=== PATIENT | female | born 1990 | race Caucasian/White ===

== ENCOUNTER 2016-10-15 09:24 | Emergency (ER) | payer OTHER ==
[2016-10-15 09:58] VITALS: BP 117/70
[2016-10-15] MEDS ORDERED: Al Hydrox/Mg Hydrox/Simet LIQ* 30 ML UDC PO ONE (11:01)
[2016-10-15] MEDS ORDERED: Lidocaine 2% VISCOUS* 15 ML UDC PO ONE (11:01)
--- NOTE | 2016-10-15 12:22 | RAD ---
HISTORY: Right upper quadrant pain COMPARISONS: August 22, 2013 TECHNIQUE: Multiple transverse and longitudinal ultrasound images were obtained of the right upper quadrant of the abdomen using grayscale and color Doppler imaging. FINDINGS: LIVER: The liver is normal in shape, size, contour, and echogenicity. There are no focal parenchymal masses. There is normal hepatopedal flow of the portal vein on Doppler imaging. BILIARY TREE: There is no intrahepatic or extrahepatic biliary dilatation. The common duct measures 0.3 cm. GALLBLADDER: The gallbladder is well-visualized. There is no cholelithiasis, gallbladder wall thickening, pericholecystic fluid, or sonographic Dela Cruz sign. PANCREAS: The head of the pancreas is unremarkable. The tail of the pancreas is not well visualized secondary to overlying bowel gas. RIGHT KIDNEY: The right kidney is normal in shape, size, contour, and echogenicity. There is no hydronephrosis or nephrolithiasis. The right kidney measures 11.3 x 3.7 x 4.9 cm. AORTA AND IVC: The aorta and IVC are unremarkable. FLUID: There are no pleural effusions. There is no free fluid within the hepatorenal recess. OTHER FINDINGS: None. IMPRESSION: NO ACUTE SONOGRAPHIC PATHOLOGY OF THE VISUALIZED PORTION OF THE ABDOMEN
--- NOTE | 2016-10-30 00:32 | UC ---
Rhett Patel Karl, scribed for Jada Alva DO on 10/15/16 at 1146 . Abdominal Pain Female HPI - HPI Summary HPI Summary: Pt is a 26 y/o female that presents to [facility] c/o a cramping/aching/bloated abd pain for the past 2.5 weeks. Pt reported that for the first 2 weeks with her abd pain she was having nausea and vomiting/diarrhea every 2-3 hours with for 2 days then it "sort of tapered off" with her last episode of vomiting being 2 days ago. Pt stated that her abd pain usually starts at a 7/10 aching then progresses to a 9/10, but it is currently at a 4/10. Pt reported that eating food aggravates her pain and that she has also been having reflux and gurgling in her stomach. Pt described her pain as a sharp pain primarily in her RUQ and epigastrium. - History of Current Complaint Chief Complaint: UCAbdominalPain Stated Complaint: ABDOMINAL PAIN, AND NAUSEA Time Seen by Provider: 10/15/16 10:49 Hx Obtained From: Patient Hx Last Menstrual Period: 10/01/16 ?: No Onset/Duration: Gradual Onset, Lasting Weeks, Worse Since Severity Initially: Moderate Severity Currently: Mild Pain Intensity: 4 - Abd Pain (Current) Pain Scale Used: 0-10 Numeric Location: Discrete At: RUQ, Epigastric Radiates: No Character: Cramping, Sharp Aggravating Factor(s): Food, Deep Breaths Alleviating Factor(s): Nothing Associated Signs and Symptoms: Positive: Decreased Appetite, Nausea, Vomiting, Diarrhea. Negative: Fever, Cough, Chest Pain, Dizzy, Back Pain, Constipation, Blood in Stool, Urinary Symptoms, Vaginal Bleeding, Vaginal Discharge Allergies/Adverse Reactions: Allergies Allergy/AdvReac Type Severity Reaction Status Date / Time Sulfamethoxazole Allergy Severe Rash Verified 03/21/15 20:17 w/Trimethoprim [From Bactrim] Home Medications: Home Medications Aripiprazole [Abilify] 5 mg PO 10/15/16 [History] Escitalopram Oxalate [Lexapro] 20 mg PO QAM 10/15/16 [History Confirmed 10/15/16 ] PMH/Surg Hx/FS Hx/Imm Hx Endocrine History Of: Denies: Diabetes, Thyroid Disease Cardiovascular History Of: Denies: Cardiac Disorders, Hypertension Respiratory History Of: Reports: Asthma - allergy and exercise induced Denies: COPD GI/ History Of: Denies: Ulcer - Surgical History Surgical History: Yes Surgery Procedure, Year, and Place: LEFT WRIST ARTHROSCOPY - Family History Known Family History: Negative: Cardiac Disease, Hypertension, Diabetes, Other - gallbladder dz - Social History Alcohol Use: Occasionally Substance Use Type: None Substance Use Comment - Amount & Last Used: denied any usage today Smoking Status (MU): Never Smoked Tobacco Review of Systems Constitutional: Negative Skin: Negative Eyes: Negative ENT: Negative Respiratory: Negative Cardiovascular: Negative Gastrointestinal: Abdominal Pain, Vomiting, Diarrhea Genitourinary: Negative Motor: Negative Neurovascular: Negative Musculoskeletal: Negative Neurological: Negative Psychological: Negative All Other Systems Reviewed And Are Negative: Yes Physical Exam Triage Information Reviewed: Yes Appearance: Well-Appearing, No Pain Distress, Well-Nourished Vital Signs: Initial Vital Signs Temp 98.1 F 10/15/16 09:53 Pulse 64 10/15/16 09:53 Resp 18 10/15/16 09:53 BP 117/70 10/15/16 09:53 Pulse Ox 99 10/15/16 09:53 Vital Signs Reviewed: Yes Eyes: Positive: Conjunctiva Clear. Negative: Discharge ENT: Positive: Normal ENT inspection. Negative: Muffled/hoarse voice Neck exam: Normal Neck: Positive: Supple Respiratory: Positive: Chest non-tender, Lungs clear, Normal breath sounds, No respiratory distress Cardiovascular: Positive: RRR, No Murmur Abdomen Description: Positive: Soft. Negative: Nontender - tender epigastrum, ruq, rlq, CVA Tenderness (R), CVA Tenderness (L), Distended, Guarding Bowel Sounds: Positive: Present Musculoskeletal Exam: Normal Neurological: Positive: Alert, Muscle Tone Normal Psychological Exam: Normal Psychological: Positive: Age Appropriate Behavior Skin Exam: Normal - warm, dry, normal coloer Diagnostics - Laboratory Diagnostic Studies Completed/Ordered: US Gallbladder (Radiologist) IMPRESSION : NO ACUTE SONOGRAPHIC PATHOLOGY OF THE VISUALIZED PORTION OF THE ABDOMEN Abd Pain Female Course/Dx - Course Course Of Treatment: pt with pain/tenderness in ruq and epigatrum. not tolerating food. also with rlq tenderness. reccomended transfer to the ED for work up of possible acute abd. pt refused. as pt had labs drawn that am for other porposes(cbc, bmp wnl), was able to have stat lipase, amylase and lft added. all within normal. limits. which was re-assuring. call pt later that evening around 7:30 pm. pt states that severe pain had not returned. reminded her that she could always change her mind and got to ed, especially if pain became severe or if she developed any new sx such as fever. reminded her to follow up with pcp the following morning. called pt again on 10/16/16. pt reported feeling much better decreased pain, improved appetite. - Differential Dx/Diagnosis Differential Diagnosis: Appendicitis, Gall Bladder Disease, Pancreatitis, , Renal Colic, Urinary Tract Infection Provider Diagnoses: abd pain unknown edin Discharge - Discharge Plan Condition: Stable Disposition: AGAINST MEDICAL ADVICE Patient Education Materials: Acute Abdominal Pain (ED) Referrals: Akiko Jorge MD [Primary Care Provider] - (YOU SHOULD BE SEEN TOMORROW) Additional Instructions: WE HAVE DONE AN ULTRASOUND STUDY OF YOUR GALL BLADDER WHICH WAS NORMAL. WE HAVE DONE SOME LAB WORK. YOU WILL BE CALLED WITH ABNORMAL RESULTS. WE HAVE DONE EVERYTHING WE CAN DO HERE TO EVALUATE YOUR ABDOMINAL PAIN. WE HAVE RECOMMENDED TRANSFER TO THE ED FOR FURTHER EVALUATION. YOU HAVE REFUSED AND ARE LEAVING AGAINST MEDICAL ADVICE. PLEASE REMEMBER THAT AT ANYTIME, YOU CAN CHANGE YOUR MIND AND GO TO THE ED. WE URGE YOU TO DO SO, ESPECIALLY IF YOU DEVELOP SEVERE PAIN (ESPECIALLY IF IT IS IN THE RIGHT UPPER OR LOWER ABDOMEN, THE MIDDLE UPPER ABDOMEN OR RIGHT LOWER ABDOMEN), SHORTNESS OF BREATH, FEVER, VOMITING. PLEASE BE SEEN BY YOUR PCP TOMORROW. The documentation as recorded by the Rhett acosta Karl accurately reflects the service I personally performed and the decisions made by me, Jada Alva DO.
== END 2016-10-15 13:13 | disposition left against medical advice (07) ==
LOC: UCEAST 09:24
DX: R10.11 Right upper quadrant pain (principal); R10.13 Epigastric pain; R11.2 Nausea with vomiting, unspecified; R19.7 Diarrhea, unspecified; Z32.02 Encounter for pregnancy test, result negative; Z88.2 Allergy status to sulfonamides
CPT/HCPCS: 76705; 81002; 81025; 99212; A9270-GY; G0463

== ENCOUNTER 2017-05-10 09:17 | Emergency (ER) | payer OTHER, MEDICAID ==
--- NOTE | 2017-05-10 11:16 | ED ---
Lori Patel Alfonso, scribed for Eloina Malave MD on 05/10/17 at 1048 . Abdominal Pain/Female - HPI Summary HPI Summary: This patient is a 27 year old F presenting to [facility] accompanied by her mother with a chief complaint of abdominal pain for 3 weeks. The CC is described as an aching discomfort with intermittent sharp pains. The patient rates the pain 7/ 10 in severity. Symptoms aggravated and alleviated by nothing. Symptoms not aggravated by PO. Patient reports anxiety, stress, vomiting, nausea (alleviated by Zofran), feeling bloated, hematemesis (this morning 1-2 today), diarrhea, and constipation (3 days last week, resolved by Epson salt), insomnia secondary to the pain. Patient denies fever, chill, back pain, eating acidic foods ( avoids tomatoes), dysuria, melena, and vaginal discharge. Pt did not take zofran today. Pt with 2 episodes of vomiting today - one with some blood - came to ED. Pt does take a proton pump inhibitor and did take today. Has previously take Tums without relief. None today. Pt is followed by GI - has not called to scheduled follow-up. No h/o scope. Little caffeine and carbonated beverages. PMHx depression, anxiety, IBS, and GERD (reports diagnosis last year). LMP finished last week. Pt is unemployed and under stress. Pt denies smoking, substance use, and alcohol use. She took a proton pump inhibitor today. Patient s medication reviewed this visit. - History of Current Complaint Chief Complaint: EDAbdPain Stated Complaint: VOMITTING BLOOD Time Seen by Provider: 05/10/17 10:40 Hx Obtained From: Patient Hx Last Menstrual Period: Ended last week ?: No Onset/Duration: Lasting Weeks, Still Present Timing: Intermittent Episode Lasting Location: Discrete At: RUQ, Epigastric Radiates: No Character: Sharp, Burning Aggravating Factor(s): Other: - NEGATIVE: PO Alleviating Factor(s): Nothing Associated Signs and Symptoms: Positive: Other: - Patient reports anxiety, stress, vomiting, nausea (alleviated by Zofran), feeling bloated, hematemesis ( this morning 1-2 today), diarrhea, and constipation (3 days last week, resolved by Epson salt), insomnia secondary to the pain. Patient denies fever, chill, back pain, eating acidic foods (avoids tomatoes), dysuria, melena, and vaginal discharge. Simlar Episode/Dx as:: 1 year ago GERD Allergies/Adverse Reactions: Allergies Allergy/AdvReac Type Severity Reaction Status Date / Time Sulfamethoxazole Allergy Severe Rash Verified 03/21/15 20:17 w/Trimethoprim [From Bactrim] PMH/Surg Hx/FS Hx/Imm Hx Previously Healthy: Yes Endocrine/Hematology History: Denies: Hx Diabetes, Hx Thyroid Disease Cardiovascular History: Denies: Hx Hypertension Respiratory History: Reports: Hx Asthma - allergy and exercise induced Denies: Hx Chronic Obstructive Pulmonary Disease (COPD) GI History: Denies: Hx Ulcer Psychiatric History: Denies: Hx of Violent Episodes Against Others - Surgical History Surgery Procedure, Year, and Place: LEFT WRIST ARTHROSCOPY Infectious Disease History: Denies: Hx Hepatitis, Hx Human Immunodeficiency Virus (HIV), History Other Infectious Disease, Traveled Outside the in Last 30 Days - Family History Known Family History: Positive: None Negative: Cardiac Disease, Hypertension, Diabetes, Other - gallbladder dz - Social History Occupation: Unemployed Lives: With Family Alcohol Use: Occasionally Hx Substance Use: No Substance Use Type: Reports: None Substance Use Comment - Amount & Last Used: denied any usage today Smoking Status (MU): Never Smoked Tobacco Review of Systems Constitutional: Negative Eyes: Negative ENT: Other - NEGATIVE: eating acidic foods Cardiovascular: Negative Respiratory: Negative Positive: Abdominal Pain, Vomiting, Nausea, Other - feeling bloated, hematemesis (this morning 1-2 today), diarrhea, and constipation (3 days last week, resolved by Epson salt); negative melena. Genitourinary: Negative Musculoskeletal: Negative Positive: Rash Neurological: Other Positive: Anxious, Other - POSITIVE: stress, insomnia All Other Systems Reviewed And Are Negative: Yes Physical Exam Triage Information Reviewed: Yes Vital Signs On Initial Exam: Initial Vitals Temp Pulse Resp BP Pulse Ox 97.9 F 78 20 132/79 98 05/10/17 09:22 05/10/17 09:22 05/10/17 09:22 05/10/17 09:22 05/10/17 09:22 Vital Signs Reviewed: Yes Appearance: Positive: Well-Appearing, No Pain Distress Skin: Positive: Warm, Skin Color Reflects Adequate Perfusion, Dry Head/Face: Positive: Normal Head/Face Inspection Eyes: Positive: Normal, EOMI, VIRGIL ENT: Positive: Normal ENT inspection, Hearing grossly normal, Pharynx normal, TMs normal Neck: Positive: Supple, Nontender, No Lymphadenopathy Respiratory/Lung Sounds: Positive: Clear to Auscultation, Breath Sounds Present Cardiovascular: Positive: Normal, RRR, Other Abdomen Description: Positive: No Organomegaly, Soft. Negative: Nontender - + epigastric TTP mild TTP RUQ - no guarding, no rebound Bowel Sounds: Positive: Present Musculoskeletal: Positive: Normal, Strength/ROM Intact Neurological: Positive: Normal, Sensory/Motor Intact, Alert, Oriented to Person Place, Time Psychiatric: Positive: Normal AVPU Assessment: Alert - Grey Coma Scale Best Eye Response: 4 - Spontaneous Best Motor Response: 6 - Obeys Commands Best Verbal Response: 5 - Oriented Diagnostics - Vital Signs Vital Signs Temp Pulse Resp BP Pulse Ox 05/10/17 09:22 97.9 F 78 20 132/79 98 - Laboratory Result Diagrams: 05/10/17 12:18 05/10/17 12:18 Lab Statement: Any lab studies that have been ordered have been reviewed, and results considered in the medical decision making process. - Additional Comments Diagnostic Additional Comments: An abdominal US reveals, per radiologist, NO ACUTE SONOGRAPHIC PATHOLOGY OF THE VISUALIZED PORTION OF THE ABDOMEN. Re-Evaluation - Re-Evaluation First Eval Re-Evaluation Time: 12:35 Change: Improved Comment: Pt states pain "much better" following GI cocktail - awaiting labs. reviewed ultrasound Second Eval Re-Evaluation Time: 14:01 Change: Improved Comment: Pt improved - took po - no complaints. PT's mother out of room - spoke with pt privately. REviewed + HCG with pt states had LMP first week of April, but flow wasn't as strong as normal. [facility] ultrasound by me: + IUP, FHR 146. Pt without any pain or discomfort in lower abdomen. d/w pt - hydrate, zofran ok. no NSAID. [facility]. Pt requested mom not know - will exclude from discharge paperwork. RN aware. Pt in agreement with plan Abdominal Pain Fem Course/Dx - Course Course Of Treatment: Pt presents with episodeic nausea, vomiting, with 1 episode of hematemesis today - pt followed by GI for GERD. Has not had scope. Pt is Rx zofran and PPI - did not take PPI today. Pt with mild epigastric and RUQ pain. Will give IVF, zofran, GI cocktail. check labs. US. reassess - Diagnoses Provider Diagnoses: Nausea & vomiting, Epigastric abdominal pain, Discharge - Discharge Plan Condition: Improved Disposition: HOME Patient Education Materials: Epigastric Pain (ED), Abdominal Pain (ED), Acute Nausea and Vomiting (ED) Additional Instructions: - Contact your doctor to schedule a follow-up appointment - this is VERY important - conitnue to take proton pump inhibitor as previous. Okay to take Zofran as prescribed for nausea - small frequent meals are important - avoid excess caffeine and carbonated beverages - Okay to take Maalox 2 times a day as needed for burning abdominal pain - call your doctor or return with any questions or concerns The documentation as recorded by the Lori acosta Alfonso accurately reflects the service I personally performed and the decisions made by , Eloina Malave MD.
[2017-05-10] MEDS ORDERED: Al Hydrox/Mg Hydrox/Simet LIQ* 30 ML UDC PO ONE (11:22)
[2017-05-10] MEDS ORDERED: Lidocaine 2% VISCOUS* 15 ML UDC PO ONE (11:22)
[2017-05-10] MEDS ORDERED: NS 0.9% 1000 ML* 1,000 ML IV ONE (11:23)
[2017-05-10] MEDS ORDERED: Ondansetron INJ* 2 MG/ML VIAL IV ONE (11:34)
--- NOTE | 2017-05-10 11:56 | RAD ---
HISTORY: Right upper quadrant pain, epigastric pain, nausea COMPARISONS: October 15, 2016 TECHNIQUE: Multiple transverse and longitudinal ultrasound images were obtained of the right upper quadrant of the abdomen using grayscale and color Doppler imaging. FINDINGS: LIVER: The liver is normal in shape, size, contour, and echogenicity. There are no focal parenchymal masses. There is normal hepatopedal flow of the portal vein on Doppler imaging. BILIARY TREE: There is no intrahepatic or extrahepatic biliary dilatation. The common duct measures 0.5 cm. GALLBLADDER: The gallbladder is well-visualized. There is no cholelithiasis, gallbladder wall thickening, pericholecystic fluid, or sonographic Dela Cruz sign. PANCREAS: The head of the pancreas is unremarkable. The tail of the pancreas is not well visualized secondary to overlying bowel gas. RIGHT KIDNEY: The right kidney is normal in shape, size, contour, and echogenicity. There is no hydronephrosis or nephrolithiasis. The right kidney measures 11.4 x 4.2 x 6 cm. AORTA AND IVC: The aorta and IVC are unremarkable. FLUID: There are no pleural effusions. There is no free fluid within the hepatorenal recess. OTHER FINDINGS: None. IMPRESSION: NO ACUTE SONOGRAPHIC PATHOLOGY OF THE VISUALIZED PORTION OF THE ABDOMEN.
[2017-05-10 12:33] LABS: Urine Bilirubin Negative (Negative); Urine Glucose Negative (Negative); Urine Nitrite Negative (Negative)
[2017-05-10 13:15] LABS: Hematocrit 42 % (35-47); Hemoglobin 14.3 g/dl (12.0-16.0); Mean Corpuscular HGB Conc 34 g/dl (31-36); Mean Corpuscular Hemoglobin 30 pg (27-31); Mean Corpuscular Volume 88 fL (80-97); Mean Platelet Volume 10 um3 (7.4-10.4); Red Cell Distribution Width 13 % (10.5-15); White Blood Count 7.7 10^3/ul (3.5-10.8)
[2017-05-10 13:21] LABS: Albumin 4.1 g/dL (3.2-5.2); BUN/Creatinine Ratio 11.3 (8-20); Calcium 9.4 mg/dL (8.6-10.3); EGFR African American 180.8 (>60); EGFR Non-African American 140.6 (>60); Globulin 2.6 g/dL (2-4); Potassium 3.9 mmol/L (3.5-5.0); Total Bilirubin 1.2 mg/dL (0.2-1.0); Total Protein 6.7 g/dL (6.4-8.9)
[2017-05-10 13:43] LABS: UR Preg Internal Control QC Line Present
[2017-05-10 13:44] LABS: Manual Entry Verification JEA0012
[2017-05-10 14:26] VITALS: BP 114/65
== END 2017-05-10 14:26 | disposition home or self-care (01) ==
LOC: ED 09:17
DX: R21 Rash and other nonspecific skin eruption (principal); Z33.1 Pregnant state, incidental; F41.9 Anxiety disorder, unspecified; R11.2 Nausea with vomiting, unspecified; R10.13 Epigastric pain
CPT/HCPCS: 36415; 76705; 80053; 81003; 81025; 83690; 83735; 84702; 85025; 99283; A9270-GY; J2405

== ENCOUNTER 2018-12-15 13:49 | Emergency (ER) | payer MEDICAID, OTHER ==
[2018-12-15 13:58] VITALS: BP 119/80
--- NOTE | 2018-12-15 15:01 | UC ---
Psychiatric Complaint HPI - HPI Summary HPI Summary: 28-year-old woman with a chief complaint of anxiety. Patient has history of anxiety and she's on Wellbutrin. She's been having a hard time sleeping and concentrating. Denies any suicidal ideation. She does have a new job. She does see a counselor at [facility] but she is not able to get in right away. When she exercises that decreases the anxiety. She's had some shortness of breath which reminds her of her anxiety attack. No upper respiratory tract infection symptoms no edema no history of DVT or pulmonary embolus no chest pain. - History Of Current Complaint Chief Complaint: UCPsych Stated Complaint: ANXIETY Time Seen by Provider: 12/15/18 14:49 Hx Last Menstrual Period: 12/11/18 - Allergies/Home Medications Allergies/Adverse Reactions: Allergies Allergy/AdvReac Type Severity Reaction Status Date / Time sulfamethoxazole Allergy Intermediate Rash Verified 12/15/18 13:59 Home Medications: Home Medications Bupropion XL* [Wellbutrin XL *] 150 mg PO DAILY 12/15/18 [History Confirmed ] Melatonin [Ra Melatonin] 10 mg PO SEE INSTRUCTIONS 12/15/18 [History Confirmed 12/15/18] PMH/Surg Hx/FS Hx/Imm Hx Previously Healthy: Yes Psychological History: Anxiety - Surgical History Surgical History: Yes Surgery Procedure, Year, and Place: LEFT WRIST ARTHROSCOPY - Family History Known Family History: Positive: None Negative: Cardiac Disease, Hypertension, Diabetes, Other - gallbladder dz - Social History Alcohol Use: Occasionally Substance Use Type: None Substance Use Comment - Amount & Last Used: denied any usage today Smoking Status (MU): Never Smoked Tobacco Review of Systems All Other Systems Reviewed And Are Negative: Yes Constitutional: Positive: Negative Skin: Positive: Negative Eyes: Positive: Negative ENT: Positive: Negative Respiratory: Positive: Shortness Of Breath Cardiovascular: Positive: Negative Gastrointestinal: Positive: Negative Motor: Positive: Negative Neurovascular: Positive: Negative Musculoskeletal: Positive: Negative Neurological: Positive: Negative Psychological: Positive: Anxious Is Patient Immunocompromised?: No Physical Exam Triage Information Reviewed: Yes Appearance: Well-Appearing, No Pain Distress, Well-Nourished Vital Signs: Initial Vital Signs Temp 98.7 F 12/15/18 13:54 Pulse 94 12/15/18 13:54 Resp 20 12/15/18 13:54 BP 119/80 12/15/18 13:54 Pulse Ox 98 12/15/18 13:54 Vital Signs Reviewed: Yes Eye Exam: Normal Eyes: Positive: Conjunctiva Clear Neck exam: Normal Neck: Positive: Supple Cardiovascular Exam: Normal Cardiovascular: Positive: RRR Musculoskeletal Exam: Normal Musculoskeletal: Positive: Strength Intact, ROM Intact, No Edema, Other: - No calf tenderness Neurological: Positive: Alert Psychological Exam: Normal Psychological: Positive: Age Appropriate Behavior Skin Exam: Normal Psych Complaint Course/Dx - Course Course Of Treatment: The plan is the patient will contact, [facility] today to arrange a follow-up with her counselor. I wrote prescription for Xanax 0.5 mg by mouth every 8 hours when necessary a total number of 10. Patient denied suicidality here. I also encouraged her to increase her exercise. Also let her know if she started feeling worse headache dots of suicide or increasing anxiety to go to the emergency department. - Differential Dx/Diagnosis Provider Diagnosis: Anxiety Discharge - Sign-Out/Discharge Documenting (check all that apply): Patient Departure All imaging exams completed and their final reports reviewed: No Studies - Discharge Plan Condition: Stable Disposition: HOME Prescriptions: ALPRAZolam [Xanax] 0.5 mg PO Q8HR PRN #10 tablet MDD 1.5MG PRN Reason: Anxiety Patient Education Materials: Anxiety (ED) Referrals: Akiko Jorge MD [Primary Care Provider] - [facility] [Outside] Additional Instructions: FOLLOW UP WITH YOUR MENTAL HEALTH COUNSELOR. GO TO THE EMERGENCY DEPARTMENT FOR ANY WORSENING OF YOUR CONDITION OR QUESTIONS OR CONCERNS. - Billing Disposition and Condition Condition: STABLE Disposition: Home
== END 2018-12-15 15:03 | disposition home or self-care (01) ==
LOC: UCEAST 13:49
DX: F41.9 Anxiety disorder, unspecified (principal); Z79.899 Other long term (current) drug therapy; Z88.2 Allergy status to sulfonamides
CPT/HCPCS: 99212; G0463

== ENCOUNTER 2019-02-09 17:37 | Emergency (ER) | payer MEDICAID, OTHER ==
--- NOTE | 2019-02-09 18:16 | UC ---
Complaint Female HPI - HPI Summary HPI Summary: 29 yo female presents with heavy menstrual bleeding. She tells me that about a month ago she had her menstrual cycle for 5 days and noticed it was slightly heavier in flow than normal. 4 days ago she developed heavy menstrual bleeding that has continued into today. She states she is using one supermax tampon and a pad every 2 hours due to the amount of blood. She has some very mild lower abdominal discomfort, but otherwise has no pain. She started the nuvaring 1 month ago and was previously on nexplanon. She denies dizziness, fever, SOB, palpitations, n/v, dysuria. She is sexually active with her boyfriend. - History Of Current Complaint Chief Complaint: UCGU Stated Complaint: PERSONAL Time Seen by Provider: 02/09/19 18:15 Hx Obtained From: Patient Hx Last Menstrual Period: 4 weeks Onset/Duration: Sudden Onset Timing: Constant Severity Initially: Mild Severity Currently: Mild Pain Intensity: 2 Pain Scale Used: 0-10 Numeric - Allergies/Home Medications Allergies/Adverse Reactions: Allergies Allergy/AdvReac Type Severity Reaction Status Date / Time sulfamethoxazole Allergy Intermediate Rash Verified 02/09/19 18:56 Home Medications: Home Medications Etonogest/Eth.estradiol (Nf) [Nuvaring Vaginal Ring] 1 each VAGINAL .SEE COMMENTS 02/09/19 [History Confirmed 02/09/19] PMH/Surg Hx/FS Hx/Imm Hx - Additional Past Medical History Additional PMH: None - Surgical History Surgical History: Yes Surgery Procedure, Year, and Place: LEFT WRIST ARTHROSCOPY. wisdom teeth extracted - Family History Known Family History: Positive: None Negative: Cardiac Disease, Hypertension, Diabetes, Other - gallbladder dz - Social History Lives: With Family Alcohol Use: Occasionally Substance Use Type: None Substance Use Comment - Amount & Last Used: denied any usage today Smoking Status (MU): Light Every Day Tobacco Smoker Type: eCigarepramod Review of Systems All Other Systems Reviewed And Are Negative: Yes Constitutional: Positive: Negative Skin: Positive: Negative Respiratory: Positive: Negative Cardiovascular: Positive: Negative Gastrointestinal: Positive: Negative Genitourinary: Positive: Abnormal Bleeding Neurological: Positive: Negative Psychological: Positive: Negative Physical Exam - Summary Physical Exam Summary: GENERAL: NAD. WDWN. No pain distress. SKIN: No rashes, sores, lesions, or open wounds. NECK: Supple. Nontender. No lymphadenopathy. CHEST: CTAB. No r/r/w. No accessory muscle use. Breathing comfortably and in no distress. CV: RRR. Without m/r/g. Pulses intact. Cap refill <2seconds ABDOMEN: Soft. NTTP. No distention or guarding. No CVA tenderness. Bowel sounds present NEURO: Alert. PSYCH: Age appropriate behavior. Triage Information Reviewed: Yes Vital Signs: Initial Vital Signs Temp 97.9 F 02/09/19 18:03 Pulse 86 02/09/19 18:03 Resp 17 02/09/19 18:03 BP 143/80 02/09/19 18:03 Pulse Ox 99 02/09/19 18:03 Vital Signs Reviewed: Yes Complaint Female Dx - Course Course Of Treatment: I suspect pt will require labwork and an ultrasound to best evaluate her symptoms; these are currently beyond the capabilities of . I discussed this with the patient and recommended she be further evaluated in the ED. She was agreeable to this and will drive herself. - Differential Dx/Diagnosis Provider Diagnosis: Heavy menstrual bleeding Discharge - Sign-Out/Discharge Documenting (check all that apply): Patient Departure All imaging exams completed and their final reports reviewed: No Studies - Discharge Plan Condition: Stable Disposition: HOME-RECOMMEND TO ED Referrals: Akiko Jorge MD [Primary Care Provider] - Additional Instructions: I recommend that you go to the ER for your heavy menstrual bleeding - Billing Disposition and Condition Condition: STABLE Disposition: Home-Recommend to ED
[2019-02-09 18:58] VITALS: BP 143/80
== END 2019-02-09 18:22 | disposition home health service (06) ==
LOC: UCEAST 17:37
DX: N92.0 Excessive and frequent menstruation with regular cycle (principal); F17.290 Nicotine dependence, other tobacco product, uncomplicated; Z88.2 Allergy status to sulfonamides
CPT/HCPCS: 99212; G0463

== ENCOUNTER 2019-02-09 18:52 | Emergency (ER) | payer OTHER ==
--- OUTSIDE RECORDS SUMMARY | 2019-02-09 19:01 | XMS REPORT | Continuity of Care Document ---
:1990 Author Organization [facility] Address [address], [place] [id number] Phone Care Team Providers Name Role Phone Courtney Mccallum NP Unavailable Unavailable Allergies, Adverse Reactions, Alerts Substance Reaction Status sulfamethoxazole Hives/Skin Rash Active trimethoprim Hives/Skin Rash Active Medications Medication Instructions Dosage Effective Dates Status Comments (start - stop) metronidazole 500 mg take 1 tablet by - Active tablet oral route twice daily for 7 days NuvaRing 0.12 mg insert 1 vaginal 1.00 vaginal - Active -0.015 mg/24 hr ring by vaginal ring vaginal route every month leave in place for 3 weeks, remove for 1 week NuvaRing 0.12 mg insert 1 vaginal 1.00 vaginal - Active -0.015 mg/24 hr ring by vaginal ring vaginal route every month leave in place for 3 weeks, remove for 1 week ABILIFY (unknown Not Available - Active strength) NEXIUM (unknown as needed Not Available - Active strength) WELLBUTRIN (unknown Not Available - Active strength) ALBUTEROL INHALER Not Available - Active (unknown strength) Problems Condition Effective Dates (start - Clinical Status Comments stop) Pelvic and perineal pain Encounter for surveillance of vagnl ring Acute vaginitis Body mass index (BMI) 29.0-29.9, adult Enctr srvlnc implantable subdermal contraceptive Encounter for initial prescription of vagnl ring Enctr for init prescription of implntbl subdermal contracep Encntr screen for dis of the bld/bld-form org/immun mechn Encounter for elective termination of 10 weeks gestation of Encounter for oth general cnsl and advice on contraception Encntr screen for infections w sexl mode of transmiss Encounter for elective termination of Human immunodeficiency virus [HIV] - counseling Encounter for test, result positive Weeks of gestation of not specified Encntr screen for dis of the bld[facility] Encounter for elective termination of 11 weeks gestation of Encounter for initial prescription of vagnl ring Encntr screen for infections w sexl mode of transmiss Encounter for elective termination of Encounter for test, result positive Weeks of gestation of not specified Encounter for test, result positive RhD positive - Active Procedures Procedure Date OFFICE/OUTPATIENT VISIT, EST WET SMEAR ASSAY OF BODY FLUID-PH VAGINITIS RX Contraceptive Parachute/Combatant Diver Officer.Svc. Other Parachute/Combatant Diver Officer.Svc. STI Results Test Name Date and Time Measure Units Reference Range Abnormal Flag Status Comments Panel Description: Wet Mount Final Wet Mount 15:37:57 Hyphae/Olga: noBudding yeast: Final noTrich: noClue cells: yes (>=20%)WBCs: yes (moderate)Amine/Whiff test: positivepH: 5.5 Advance Directives Directive Yes / No Effective Date File Name No information Encounters Encounter Practice Location Reason(s) Diagnoses Date Provider Providers Description For Visit Copied on Encounter OFFICE/OUTPA [facility] Pain with Pelvic and Al[place]io Referring TIENT VISIT, [facility] [place] perineal [address] Provider: JAXSON Tamez (chief painEncounter [address], [place] complaint) for [place], [place], Alessio J, [address] [place], [address] surveillance [address], [place]. [address] [place] [address] [place] of vagnl tel:[phone] St, [place], [place], [place], ring[place]ute [address] [place], [address]. [place], vaginitis tel:[phone], [phone] [place] tel:[phone] [facility] Body mass Raphaelidis Referring [facility] [place] index (BMI) 4-201 [place]. [address] Provider: [facility] 29.0-29.9, [address], Caorlina Finger adultEnctr [place], [place], Sanya [facility], 620 srvlnc [address]. , [address] implantable tel:[phone], St, [place], subdermal [address] [place], [place], [place], contrace[place] [address]. [id number], Encounter for tel:[phone] [place] initial [phone] tel:[phone] prescription [phone] of vagnl ring [facility] Enctr for Sep-1 P[facility] [place] init 2-201 [address]. [address] prescription [address], [place] of implntbl [place], [place], [facility], 620 subdermal [address]. [address] [place] contracep tel:+7 St, [place], [address] [place], [id number], [place] tel:[phone] [facility] Encntr screen Sep-0 Karoline [facility] [place] for dis of [address]. [address] the [address], [place] bld/bld-form [place], [place], [facility], 620 org/immun [id number]. [address] [place] mechnsmEncoun tel:+ St, [place], [place] [address] [place], elective [id number], termination [place] of tel:[phone] [id number] [phone] weeks gestation of pregnancyEnco unter for oth general cnsl and advice on contraception Encntr screen for infections w sexl mode of transmiss [facility] Encounter for Sep-0 White Isabell. [facility] [place] elective 7 [address] termination [address], [place], [place], [address], [place], [address] [place], [place], [place], [id number], [place] tel:[phone] [facility] Human Aug-3 Guggino [facility] [place] immunodeficie 1 Lisandra. [facility] ncy virus 7 [address] Finger [HIV] St, [place], [facility], [address] [place], [address], [address] [place] ounter for [place]. St, [place], tel:[phone] [place], test, result [id number], positiveWeeks [place] of gestation tel:[phone] of [phone] not specified [facility] Encntr screen Dec-0 [facility]oline [facility] [place] for dis of [address]. [address] the [address], [place] bld/bld-form [place], [place], [facility], 620 org/immun [address]. [address] [place] mechnsmEncoun tel:+7 St, [place], [place] [address] [place], elective [id number], termination [place] of tel:[phone] [id number] [phone] weeks gestation of pregnancyEnco unter for initial prescription of vagnl ringEncntr screen for infections w sexl mode of transmiss [facility] Encounter for Dec-0 [facility] [place] elective Kristy. [address] termination [address], [place], [place], [facility], [facility] [address], [place]. [address] [employer] [place] tel:+7 St, [place], [address] [place], [id number], [place] tel:[phone] [facility] Encounter for Dec-0 [facility] [place] 8 Kristy. 620 Provider: [place] test, result [address], NURSE [place] positiveWeeks [place], [place], [facility]. [facility], 620 of gestation [address], [place]. [address] [employer] [place] of tel:+7 [facility], not specified [address] [place], [id number], [place] tel:[phone] [facility] Encounter for Dec-0 White Isabell. [facility] [place] 8 [address] Provider: [place] test, result 6 St, [place], [place], [address], [facility]. [facility], [address] [place], [place], [place], [id number], [place] tel:[phone] Family History Family Member Diagnosis Age At Onset Mother cervical cancer 35 1st degree relative No hx of coronary heart disease (female <65, male <55) 1st degree relative No hx of cancer of breast, colon, endometrium or ovary 1st degree relative No hx of venous thromboembolism Immunizations Vaccine Date Status Comments No information Payers Payer name Insurance type Covered libertarian ID Authorization(s) Medicaid MC [id number] Social History Type Description Quantity Date Captured Comments Alcohol Use Details Unknown Caffeine Use Details Unknown Tobacco Use Status Smoking Status Current some day smoker Sex Female Vital Signs Date / Height Weight BMI Pulse Blood Temperature Respiratory Body Head BMI Pulse Inhaled Time: Rate Pressure Rate Surface Circumference percentile Ox Ox Area No information Chief Complaint And Reason For Visit Most recent encounter only, dated '01/23/2019 14:40'. Pain with Dillon (chief complaint) Reason For Referral Reason For Referral No information Plan Of Treatment Date Type Action Status Goal Tobacco cessation counseling completed History Of Present Illness Encounter Date Complaint History Of Present Illness No information Functional Status Date Functional Assessment No information Medications Administered Medication Instructions Dosage Effective Dates (start - stop) Status Comments No information Instructions Date Instruction Additional Information No information Assessments Type Assessment Date assessment Pelvic and perineal pain assessment Encounter for surveillance of vagnl ring assessment Acute vaginitis Goals Health Concern Goal Type Priority Status Date No information Medical Equipment Description Device Stites Device Identifier Effective Dates (start - stop ) Status No information Mental Status Date Cognitive Assessment Normal Orientation Health Concerns Observation Date No information Concern Status Date No information
--- NOTE | 2019-02-09 21:21 | ED ---
GI/ HPI - HPI Summary HPI Summary: Pt is a 31 y/o F presenting to the ED with a chief complaint of vaginal bleeding onset 02/05/19. She states she had heavy bleeding during her last menstrual cycle, but this menstrual cycle, her bleeding is severe as of the second day, and it was a couple of days early. She goes through a super plus tampon as well as a pad in less than two hours, and reports some more cramping than usual, as well as pain in the R inguinal area during intercourse. She denies dizziness or lightheadedness. - History of Current Complaint Chief Complaint: EDVaginalBleeding Time Seen by Provider: 02/09/19 21:06 Stated Complaint: "HEAVY MENSTRAL BLEEDING PER PT" SENT FROM [facility] Hx Obtained From: Patient Hx Last Menstrual Period: 4 weeks, is on menstrual period currently Onset/Duration: Started Days Ago, Still Present Timing: Constant, Lasting Days Severity: Moderate Current Severity: Severe Vaginal Bleeding Description: Bright Red Number of Pads per Hour: 1 - with super plus tampon Pain Intensity: 2 Location of Pain: Suprapubic Pain Characteristics: Cramping Associated Signs and Symptoms: Positive: Abdominal Pain, Other: - pain with intercourse. Negative: Dizziness, Lightheadedness Additional Signs & Symptoms: Positive: Vaginal Bleeding, First Day of Last Menstral Period - 02/05/19 Aggravating Factor(s): [place] Alleviating Factor(s): Nothing - Allergy/Home Medications Allergies/Adverse Reactions: Allergies Allergy/AdvReac Type Severity Reaction Status Date / Time sulfamethoxazole Allergy Intermediate Rash Verified 02/09/19 18:56 PMH/Surg Hx/FS Hx/Imm Hx Previously Healthy: Yes Endocrine/Hematology History: Denies: Hx Diabetes, Hx Thyroid Disease Cardiovascular History: Denies: Hx Hypertension Respiratory History: Reports: Hx Asthma - allergy and exercise induced Denies: Hx Chronic Obstructive Pulmonary Disease (COPD) GI History: Denies: Hx Ulcer Psychiatric History: Denies: Hx of Violent Episodes Against Others - Surgical History Surgery Procedure, Year, and Place: LEFT WRIST ARTHROSCOPY. wisdom teeth extracted Infectious Disease History: No Infectious Disease History: Denies: Hx Hepatitis, Hx Human Immunodeficiency Virus (HIV), History Other Infectious Disease, Traveled Outside the [place] in Last 30 Days - Family History Known Family History: Negative: Cardiac Disease, Hypertension, Diabetes, Other - gallbladder dz - Social History Alcohol Use: Occasionally Hx Substance Use: No Substance Use Type: Reports: None Substance Use Comment - Amount & Last Used: denied any usage today Hx Tobacco Use: Yes Smoking Status (MU): Light Every Day Tobacco Smoker Type: eCigarettes Review of Systems Positive: Abdominal Pain Positive: other - heavy vaginal bleeding Neurological: Negative - dizziness, lightheadedness All Other Systems Reviewed And Are Negative: Yes Physical Exam - Summary Physical Exam Summary: Appearance: Well-appearing, Well-nourished, lying in bed comfortably Skin: Warm, dry, no obvious rash Eyes: sclera anicteric, no conjunctival pallor ENT: mucous membranes moist, pharynx appears normal Neck: Supple, nontender Respiratory: Clear to auscultation, no signs of respiratory distress Cardiovascular: Normal S1, S2. No murmurs. Normal distal pulses in tibial and radial bilaterally. Abdomen: Soft, nontender, normal active bowel sounds present Musculoskeletal: Normal, Strength/ROM Intact Neurological: A&Ox3, awake and alert, mentation is normal, speech is fluent and appropriate Psychiatric: affect is normal, does not appear anxious or depressed Triage Information Reviewed: Yes Vital Signs On Initial Exam: Initial Vitals Temp Pulse Resp BP Pulse Ox 97.9 F 88 18 155/85 98 02/09/19 18:54 02/09/19 18:54 02/09/19 18:54 02/09/19 18:54 02/09/19 18:54 Vital Signs Reviewed: Yes Diagnostics - Vital Signs Vital Signs Temp Pulse Resp BP Pulse Ox 02/09/19 20:43 98.5 F 75 16 138/83 99 02/09/19 18:54 97.9 F 88 18 155/85 98 - Laboratory Result Diagrams: 02/09/19 21:01 02/09/19 21:01 Lab Statement: Any lab studies that have been ordered have been reviewed, and results considered in the medical decision making process. GIGU Course/Dx - Course Course Of Treatment: Pt is a 29 y/o F presenting to the ED with severe vaginal bleeding with her menstrual period onset 02/05/19, worsened on 02/06/19. She states she is going through a super plus tampon and a pad within two hours, and that her cramping is worse than usual. She also notes her last period was heavy but not this severe, and that she has pain during intercourse in her R inguinal area. She denies lightheadedness or dizziness. The pt's physical exam is normal. The pt's lab results are normal, and she will be discharged with a dx of menorrhagia. She is stable and agreeable with this plan. - Diagnoses Provider Diagnoses: Menorrhagia Discharge - Sign-Out/Discharge Documenting (check all that apply): Patient Departure Patient Received Moderate/Deep Sedation with Procedure: No - Discharge Plan Condition: Stable Disposition: HOME Patient Education Materials: Menorrhagia (ED) Forms: *Work Release Referrals: Akiko Jorge MD [Primary Care Provider] - Additional Instructions: Contact your echo vasc tech for a followup appt. You may need be prescribed hormonal therapy to regulate your periods. - Billing Disposition and Condition Condition: STABLE Disposition: Home - Attestation Statements Document Initiated by Dimple: Yes Documenting Scribe: Honey Juarez Provider For Whom Dimple is Documenting (Include Credential): Will Camargo MD. Scribe Attestation: Honey Patel scribed for Will Camargo MD. on 02/14/19 at 1823. Scribe Documentation Reviewed: Yes Provider Attestation: The documentation as recorded by the Honey acosta accurately reflects the service I personally performed and the decisions made by Will malone MD. Status of Scribe Document: Viewed
[2019-02-09 21:37] LABS: ABS Basophils 0.1 10^3/ul (0-0.2); ABS Eosinophils 0.1 10^3/ul (0-0.6); ABS Lymphocytes 2.1 10^3/ul (1.0-4.8); ABS Monocytes 0.4 10^3/ul (0-0.8); ABS Neutrophils 4.5 10^3/ul (1.5-7.7); Eosinophil % 0.7 %; Hematocrit 43 % (35-47); Hemoglobin 14.4 g/dL (12.0-16.0); Mean Corpuscular HGB Conc 34 g/dL (31-36); Mean Corpuscular Hemoglobin 30 pg (27-31); Mean Corpuscular Volume 90 fL (80-97); Mean Platelet Volume 9.8 fL (7.4-10.4); Platelet Count 236 10^3/uL (150-450); Red Blood Count 4.79 10^6 /uL (3.70-4.87); Red Cell Distribution Width 13 % (10.5-15); White Blood Count 7.1 10^3/uL (3.5-10.8)
[2019-02-09 21:46] LABS: ALT 18 U/L (7-52); AST 23 U/L (13-39); Albumin 4.5 g/dL (3.2-5.2); Albumin/Globulin Ratio 1.7 (1-3); Alkaline Phosphatase 75 U/L (34-104); Anion Gap 7 mmol/L (2-11); BUN/Creatinine Ratio 13.6 (8-20); Blood Urea Nitrogen 11 mg/dL (6-24); CO2 Carbon Dioxide 26 mmol/L (22-32); Calcium 9.2 mg/dL (8.6-10.3); Chloride 105 mmol/L (101-111); EGFR African American 102.6 (>60); EGFR Non-African American 84.8 (>60); Globulin 2.7 g/dL (2-4); Glucose 97 mg/dL (70-100); Potassium 4.1 mmol/L (3.5-5.0); Sodium 138 mmol/L (135-145); Total Protein 7.2 g/dL (6.4-8.9)
[2019-02-09 21:53] LABS: HCG Pregnancy < 0.60 mIU/mL
[2019-02-09 22:36] VITALS: BP 131/82
== END 2019-02-09 22:42 | disposition home or self-care (01) ==
LOC: ED 18:52
DX: N92.0 Excessive and frequent menstruation with regular cycle (principal); J45.909 Unspecified asthma, uncomplicated; F17.210 Nicotine dependence, cigarettes, uncomplicated; Z88.2 Allergy status to sulfonamides
CPT/HCPCS: 36415; 80053; 84702; 85025; 99283

== ENCOUNTER 2019-02-16 15:11 | Emergency (ER) | payer OTHER ==
--- NOTE | 2019-02-16 17:00 | ED ---
GI/ HPI - HPI Summary HPI Summary: This patient is a 29 year old female presenting to [facility] with a chief complaint of vaginal bleeding. She was here one week ago for the same problem. Yesterday it seemed to stop and then last night in the middle of the night it restarted. She reports chunks of blood in the toilet after she urinated. She reports lower right abdominal pain. Pt denies any fever, chills, erythema of eyes, sore throat , CP, SOB, cough, N/V, dysuria, myalgia, edema, rash, or dizziness - History of Current Complaint Chief Complaint: EDVaginalBleeding Time Seen by Provider: 02/16/19 16:50 Stated Complaint: HEAVY VAGINAL BLEEDING Hx Obtained From: Patient Hx Last Menstrual Period: 4 weeks, is on menstrual period currently Pain Intensity: 6 Location of Pain: RLQ - Allergy/Home Medications Allergies/Adverse Reactions: Allergies Allergy/AdvReac Type Severity Reaction Status Date / Time sulfamethoxazole Allergy Intermediate Rash Verified 02/16/19 15:13 PMH/Surg Hx/FS Hx/Imm Hx Endocrine/Hematology History: Denies: Hx Diabetes, Hx Thyroid Disease Cardiovascular History: Denies: Hx Hypertension Respiratory History: Reports: Hx Asthma - allergy and exercise induced Denies: Hx Chronic Obstructive Pulmonary Disease (COPD) GI History: Denies: Hx Ulcer Psychiatric History: Denies: Hx of Violent Episodes Against Others - Surgical History Surgery Procedure, Year, and Place: LEFT WRIST ARTHROSCOPY. wisdom teeth extracted Infectious Disease History: No Infectious Disease History: Denies: Hx Hepatitis, Hx Human Immunodeficiency Virus (HIV), History Other Infectious Disease, Traveled Outside the [place] in Last 30 Days - Family History Known Family History: Negative: Cardiac Disease, Hypertension, Diabetes, Other - gallbladder dz - Social History Alcohol Use: Occasionally Hx Substance Use: No Substance Use Type: Reports: None Substance Use Comment - Amount & Last Used: denied any usage today Hx Tobacco Use: Yes Smoking Status (MU): Light Every Day Tobacco Smoker Type: eCigarettes Review of Systems Negative: Fever, Chills Negative: Erythema Negative: Sore Throat Negative: Chest Pain Negative: Shortness Of Breath, Cough Positive: Abdominal Pain. Negative: Vomiting, Nausea Positive: hematuria - Possible, other - Vaginal Bleeding. Negative: dysuria Negative: Myalgia, Edema Negative: Rash Neurological: Other - Neg: Dizziness All Other Systems Reviewed And Are Negative: No Physical Exam - Summary Physical Exam Summary: Constitutional: Well-developed, Well-nourished, Alert. (-) Distressed HENT: Normocephalic; Atraumatic Eyes: Conjunctiva normal Neck: Musculoskeletal ROM normal neck. (-) JVD, (-) Stridor, (-) Tracheal deviation Cardio: Rhythm regular, rate normal, Heart sounds normal; Intact distal pulses; The pedal pulses are 2+ and symmetric. Radial pulses are 2+ and symmetric. (-) Murmur Pulmonary/Chest wall: Effort normal. (-) Respiratory distress, (-) Wheezes, (-) Rales Abd: Soft, (-) tenderness, (-) Distension, (-) Guarding, (-) Rebound Musculoskeletal: (-) Edema Lymph: (-) Cervical adenopathy Neuro: Alert, Oriented x3 Skin: Warm, Dry Psych: Mood and affect Normal GIGU: Geospatial Specialist Radha present. No significant bleeding. No cervical motion tenderness. No adnexal tenderness. No cervical lesions identified. Triage Information Reviewed: Yes Vital Signs On Initial Exam: Initial Vitals Temp Pulse Resp BP Pulse Ox 97.7 F 85 16 132/91 97 02/16/19 15:12 02/16/19 15:12 02/16/19 15:12 02/16/19 15:12 02/16/19 15:12 Vital Signs Reviewed: Yes Diagnostics - Vital Signs Vital Signs Temp Pulse Resp BP Pulse Ox 02/16/19 15:12 97.7 F 85 16 132/91 97 - Laboratory Lab Statement: Any lab studies that have been ordered have been reviewed, and results considered in the medical decision making process. GIGU Course/Dx - Course Course Of Treatment: This patient is a 29 year old female presenting to [facility] with a chief complaint of vaginal bleeding. No signficant bleeding. Relunctant to start contraceptives due to her nicotine intake. Patient will be referred to her OBGYN on wednesday. A plan for discharge was discussed with the patient and she was agreeable with this plan. - Diagnoses Provider Diagnoses: Menorrhalgia Discharge - Sign-Out/Discharge Documenting (check all that apply): Patient Departure - Discharge Patient Received Moderate/Deep Sedation with Procedure: No - Discharge Plan Condition: Stable Disposition: HOME Patient Education Materials: Dysmenorrhea (ED) Referrals: Akiko Jorge MD [Primary Care Provider] - 4 Days Additional Instructions: Follow up with OBGYN on Wednesday. Return to ED with new or worsening symptoms. - Attestation Statements Document Initiated by Scribe: Yes Documenting Scribe: Gera Nair Provider For Whom Scribe is Documenting (Include Credential): Mook Jones MD Scribe Attestation: I, Gera Nair, scribed for Mook Jones MD on 02/16/19 at 1726. Status of Scribe Document: Ready
[2019-02-16 17:41] LABS: Hematocrit 42 % (35-47); Mean Corpuscular HGB Conc 33 g/dL (31-36); Mean Corpuscular Hemoglobin 30 pg (27-31); Mean Corpuscular Volume 90 fL (80-97); Mean Platelet Volume 9.4 fL (7.4-10.4); Platelet Count 268 10^3/uL (150-450); Red Blood Count 4.65 10^6 /uL (3.70-4.87); Red Cell Distribution Width 13 % (10.5-15); White Blood Count 7.9 10^3/uL (3.5-10.8)
[2019-02-16 17:57] LABS: ALT 13 U/L (7-52); AST 18 U/L (13-39); Albumin 4.4 g/dL (3.2-5.2); Albumin/Globulin Ratio 1.8 (1-3); Alkaline Phosphatase 73 U/L (34-104); Anion Gap 6 mmol/L (2-11); BUN/Creatinine Ratio 16.9 (8-20); Blood Urea Nitrogen 15 mg/dL (6-24); CO2 Carbon Dioxide 27 mmol/L (22-32); Calcium 9.3 mg/dL (8.6-10.3); Chloride 104 mmol/L (101-111); EGFR African American 92.1 (>60); EGFR Non-African American 76.1 (>60); Globulin 2.4 g/dL (2-4); Glucose 101 mg/dL (70-100); Potassium 4.6 mmol/L (3.5-5.0); Sodium 137 mmol/L (135-145); Total Protein 6.8 g/dL (6.4-8.9)
[2019-02-16 18:02] LABS: HCG Pregnancy < 0.60 mIU/mL
[2019-02-16 18:36] VITALS: BP 144/79
[2019-02-17 13:16] LABS: Neisseria gonorrhoeae (GC) RNA Negative (Negative)
[2019-02-17 13:31] LABS: Trichomonas vaginalis Result Negative (Negative)
== END 2019-02-16 18:34 | disposition home or self-care (01) ==
LOC: ED 15:11
DX: N92.0 Excessive and frequent menstruation with regular cycle (principal); R10.9 Unspecified abdominal pain; F17.210 Nicotine dependence, cigarettes, uncomplicated; Z88.2 Allergy status to sulfonamides
CPT/HCPCS: 36415; 80053; 84702; 85027; 86850; 86900; 86901; 87480; 87491; 87510; 87591; 87661; 99283

== ENCOUNTER 2019-06-20 11:36 | Emergency (ER) | payer OTHER ==
--- NOTE | 2019-06-20 12:09 | UC ---
Complaint Female HPI - HPI Summary HPI Summary: 29 yo female with right sided pelvic pain and heavy vaginal bleeding x weeks slight dizziness similar symptoms 2-4 mos ago. She had here BCP changed then no hx DTDs - History Of Current Complaint Chief Complaint: UCAbdominalPain Stated Complaint: VAGINAL BLEEDING Time Seen by Provider: 06/20/19 11:45 Hx Obtained From: Patient Hx Last Menstrual Period: 2 weeks ago Onset/Duration: Gradual Onset, Lasting Weeks Timing: Constant Severity Initially: Moderate Severity Currently: Moderate Pain Intensity: 5 Pain Scale Used: 0-10 Numeric Character: Cramping Aggravating Factor(s): Nothing Alleviating Factor(s): Nothing Associated Signs And Symptoms: Positive: Vaginal Bleeding/Discharge. Negative: Fever, Back Pain, Vaginal Discharge, Nausea, Vomiting(# Of Episodes =), Genital Swelling, Genital Blisters, Retained Foregin Body (Specify) Female Torso: 1 - pain - Allergies/Home Medications Allergies/Adverse Reactions: Allergies Allergy/AdvReac Type Severity Reaction Status Date / Time sulfamethoxazole Allergy Intermediate Rash Verified 06/20/19 11:44 Home Medications: Home Medications Norethindrone-E.estradiol-Iron [Mariia Fe 1.5-30 Tablet] 1 tab PO DAILY 06/20/19 [History Confirmed 06/20/19] PMH/Surg Hx/FS Hx/Imm Hx Previously Healthy: Yes - Surgical History Surgical History: Yes Surgery Procedure, Year, and Place: LEFT WRIST ARTHROSCOPY. wisdom teeth extracted - Family History Known Family History: Negative: Cardiac Disease, Hypertension, Diabetes, Other - gallbladder dz - Social History Alcohol Use: Occasionally Substance Use Type: None Substance Use Comment - Amount & Last Used: denied any usage today Smoking Status (MU): Light Every Day Tobacco Smoker Type: eCigarettes Household Exposure Type: Cigarettes Review of Systems All Other Systems Reviewed And Are Negative: Yes Constitutional: Positive: Fatigue Skin: Positive: Negative Eyes: Positive: Negative ENT: Positive: Negative Respiratory: Positive: Negative Cardiovascular: Positive: Negative Gastrointestinal: Positive: Negative Genitourinary: Positive: Abnormal Bleeding - waxing and waning ...some times heavier than a normal period Motor: Positive: Negative Neurovascular: Positive: Negative Musculoskeletal: Positive: Negative Neurological: Positive: Negative Psychological: Positive: Negative Physical Exam Triage Information Reviewed: Yes Appearance: Well-Appearing, No Pain Distress, Well-Nourished Vital Signs: Initial Vital Signs Temp 98 F 06/20/19 11:41 Pulse 92 06/20/19 11:41 Resp 17 06/20/19 11:41 BP 118/68 06/20/19 11:41 Pulse Ox 100 06/20/19 11:41 Vital Signs Reviewed: Yes Eyes: Positive: Conjunctiva Clear ENT: Positive: Hearing grossly normal. Negative: Nasal congestion, Nasal drainage, Trismus, Muffled voice, Hoarse voice Neck: Positive: Supple, Nontender, No Lymphadenopathy Respiratory: Positive: Lungs clear, Normal breath sounds, No respiratory distress, No accessory muscle use Cardiovascular: Positive: RRR, No Murmur Abdomen Description: Positive: Nontender, No Organomegaly. Negative: CVA Tenderness (R), CVA Tenderness (L), Distended Bowel Sounds: Positive: Present Pelvic Exam: Positive: External Exam Normal, Active Bleeding - scant amt blood in vault with min blood in os, Blood. Negative: Cervicitis, Discharge, Lesions , Mass, Tender w/ Cervical Motion, Tender Adnexa, Tender Uterus, Ulcers Musculoskeletal: Positive: ROM Intact, No Edema Neurological: Positive: Alert Psychological Exam: Normal Skin Exam: Normal Procedures - Sedation Patient Received Moderate/Deep Sedation with Procedure: No Diagnostics - Radiology No standard instances Radiology Interpretation Completed By: Radiologist Summary of Radiographic Findings: 3.5 cm right ovarian cyst Complaint Female Dx - Differential Dx/Diagnosis Provider Diagnosis: Dysfunctional uterine bleeding, Right ovarian cyst Discharge ED - Sign-Out/Discharge Documenting (check all that apply): Patient Departure All imaging exams completed and their final reports reviewed: No - Discharge Plan Condition: Stable Disposition: HOME Prescriptions: Naproxen [Naproxen 500 mg tab] 500 mg PO BID PRN #20 tablet PRN Reason: Pain Patient Education Materials: Dysfunctional Uterine Bleeding (ED), Ovarian Cyst (ED) Referrals: Akiko Jorge MD [Primary Care Provider] - Additional Instructions: see your provider tomorrow as planned blood count pending - Billing Disposition and Condition Condition: STABLE Disposition: Home
[2019-06-20 14:38] VITALS: BP 125/71
[2019-06-20 16:17] LABS: ABS Basophils 0.1 10^3/ul (0-0.2); ABS Eosinophils 0.2 10^3/ul (0-0.6); ABS Lymphocytes 1.8 10^3/ul (1.0-4.8); ABS Monocytes 0.4 10^3/ul (0-0.8); Hematocrit 41 % (35-47); Hemoglobin 13.7 g/dL (12.0-16.0); Lymphocyte % 24.6 %; Mean Corpuscular HGB Conc 34 g/dL (31-36); Mean Corpuscular Hemoglobin 29 pg (27-31); Mean Corpuscular Volume 87 fL (80-97); Mean Platelet Volume 10.6 fL (7.4-10.4); Nucleated Red Blood Cells % 0.1; Platelet Count 224 10^3/uL (150-450); Red Blood Count 4.66 10^6 /uL (3.70-4.87); Red Cell Distribution Width 14 % (10-15); White Blood Count 7.5 10^3/uL (3.5-10.8)
--- NOTE | 2019-06-21 10:20 | UC ---
- Progress Note Progress Note: CBC reviewed no change ljj 06/21/19 Course/Dx - Diagnoses Provider Diagnoses: Dysfunctional uterine bleeding, Right ovarian cyst Discharge ED - Sign-Out/Discharge Documenting (check all that apply): Patient Departure All imaging exams completed and their final reports reviewed: No - Discharge Plan Condition: Stable Disposition: HOME Prescriptions: Naproxen [Naproxen 500 mg tab] 500 mg PO BID PRN #20 tablet PRN Reason: Pain Patient Education Materials: Dysfunctional Uterine Bleeding (ED), Ovarian Cyst (ED) Referrals: Akiko Jorge MD [Primary Care Provider] - Additional Instructions: see your provider tomorrow as planned blood count pending - Billing Disposition and Condition Condition: STABLE Disposition: Home
[2019-06-21 13:24] LABS: Chlamydia trachomatis NAA Negative (Negative); Neisseria gonorrhoeae (GC) NAA Negative (Negative)
== END 2019-06-20 14:39 | disposition home or self-care (01) ==
LOC: UCEAST 11:36
DX: N93.8 Other specified abnormal uterine and vaginal bleeding (principal); N83.201 Unspecified ovarian cyst, right side; F17.210 Nicotine dependence, cigarettes, uncomplicated; Z88.2 Allergy status to sulfonamides
CPT/HCPCS: 36415; 76830; 81003; 84702; 85025; 87480; 87491; 87510; 87591; 87661; 99212; G0463